=== PATIENT | female | born 1985 | race Caucasian/White ===

== ENCOUNTER 2016-11-15 07:47 | Emergency (ER) | payer BC ==
[~2016-11-15] VITALS: Ht 157.5 cm; Wt 70.4 kg
[2016-11-15 08:30] LABS: BASOPHIL COUNT 0.1 K/uL (0-0.1); EOSINOPHIL (%) 1.8 % (0-5); EOSINOPHIL COUNT 0.1 K/uL (0-0.3); HEMATOCRIT 41.1 % (36.0-46.0); IMMATURE GRANULOCYTE (%) 0.2 % (0.0-0.7); INSTRUMENT ABS NEUTROPHIL CT 3.2 K/uL; LYMPHOCYTE COUNT 1.9 K/uL (1.0-2.8); MCH 28.5 PG (29.0-34.0); MCHC 32.1 G/DL (30.0-36.0); MCV 88.8 FL (83-99); MEAN PLAT.VOLUME 10.8 uM^3 (9.5-12.4); MONOCYTE (%) 7.3 % (3-12); MONOCYTE COUNT 0.4 K/uL (0-0.8); NEUTROPHIL (%) 56.6 % (45-76); NEUTROPHIL COUNT 3.2 K/uL (1.8-6.4); PLATELET COUNT 274 K/uL (156-360); RBC DIS.WIDTH-CV 12.8 % (11.8-14.6); RBC DIS.WIDTH-SD 41.8 % (39-53); RED BLOOD COUNT 4.63 M/uL (3.80-5.20); WHITE BLOOD COUNT 5.6 K/uL (4.1-10.2)
[2016-11-15 08:41] LABS: D-DIMER ELISA < 0.15 mg/L FEU (< 0.57)
[2016-11-15 08:51] LABS: TROP-I INTERPRETATION NEGATIVE; TROPONIN-I < 0.01 ng/mL (0.0-0.30)
[2016-11-15] MEDS ORDERED: VITAMINS FOR H1 EACH PO (09:06)
[2016-11-15 09:50] LABS: ANION GAP 8 MEQ/L (2-14); CHLORIDE 105 MEQ/L (99-109); SAMPLE HEMOLYSIS CHECK 0; SAMPLE ICTERIC CHECK 0; SAMPLE LIPEMIA CHECK 0; SODIUM 141 MEQ/L (136-147)
[2016-11-15 09:56] LABS: GFR ESTIMATE (CALCULATED) > 59 mL/min/; GLUCOSE 88 mg/dL (70-99); UREA NITROGEN (BUN) 17 mg/dL (9-23)
[2016-11-15 11:50] LABS: TROP-I INTERPRETATION NEGATIVE; TROPONIN-I < 0.01 ng/mL (0.0-0.30)
[2016-11-15] MEDS ORDERED: MOTRIN800 MG PO (12:42)
[2016-11-15 12:55] VITALS: BP 95/66
== END 2016-11-15 12:56 | disposition home or self-care (01) ==
LOC: EME 07:47
PROVIDERS: Emergency Medicine
DX: R07.89 Other chest pain (principal); R51 Headache; R20.2 Paresthesia of skin; R53.83 Other fatigue
CPT/HCPCS: 71010; 80048; 84484; 85025; 85379; 93005; 99281; 99284

== ENCOUNTER 2017-07-18 08:05 | Emergency (ER) | payer BC ==
[~2017-07-18] VITALS: Ht 157.5 cm; Wt 70.0 kg
[~2017-07-18 08:05] MED LIST: MOTRIN800 MG PO; VITAMINS FOR H1 EACH PO
[2017-07-18] MEDS ORDERED: AUGMENTIN875 MG PO (09:09)
[2017-07-18 09:25] VITALS: BP 114/82
== END 2017-07-18 09:26 | disposition home or self-care (01) ==
LOC: EME 08:05
PROC: 3E0234Z Introduction of Serum, Toxoid and Vaccine into Muscle, Percutaneous Approach (ICD-10-PCS; principal; 2017-07-18)
DX: S61.432A Puncture wound without foreign body of left hand, initial encounter (principal); W54.0XXA Bitten by dog, initial encounter; Z23 Encounter for immunization
CPT/HCPCS: 73130